=== PATIENT | female | born 1995 | race Caucasian/White ===

== ENCOUNTER 2017-10-18 23:38 | Emergency (ER) | payer BC ==
[2017-10-19] MEDS ORDERED: Ondansetron 4 MG/2 ML SDV IVPUSH ONE (00:01)
[2017-10-19] MEDS ORDERED: Sodium Chloride 0.9% 10 ML Syringe FLUSH PRN (00:01)
[2017-10-19] MEDS ORDERED: Pantoprazole 40 MG Vial IVPUSH ONE (00:02)
--- NOTE | 2017-10-19 00:08 | EDM.PDOC ---
ED HPI GENERAL MEDICAL PROBLEM - General Chief Complaint: Gastrointestinal Problem Stated Complaint: TONSIL PAIN,VOMIT Time Seen by Provider: 10/19/17 00:03 Source of Information: Reports: Patient, Family History Limitations: Reports: No Limitations - History of Present Illness INITIAL COMMENTS - FREE TEXT/NARRATIVE: [place] comes into [facility] ED with episodic nausea and vomiting since tonsilectomy about a week ago. Efforts to consume solids and liquids have been problematic with post operative throat pain that has partially improved. Today, she feels weaker, unable to retain nourishment, with limited epigastric pain. She has voided in small amounts. throat Pain Score (Numeric/FACES): 7 - Related Data Allergies Allergy/AdvReac Type Severity Reaction Status Date / Time No Known Allergies Allergy Verified 10/19/17 00:01 Home Meds: Home Meds Acetaminophen [Tylenol 160 MG/5 ML Liq] 10 ml Q4H PRN 10/19/17 [History] Ibuprofen 20 ml Q4H PRN 10/19/17 [History] oxyCODONE HCl [Oxycodone HCl] 5 - 10 ml Q4H PRN 10/19/17 [History] Past Medical History - Past Surgical History HEENT Surgical History: Reports: Tonsillectomy ED ROS GENERAL - Review of Systems Review Of Systems: See Below Constitutional: Reports: Malaise, Weakness HEENT: Reports: Throat Pain Respiratory: Reports: No Symptoms Cardiovascular: Reports: No Symptoms Endocrine: Reports: No Symptoms GI/Abdominal: Reports: Abdominal Pain, Nausea, Vomiting : Reports: No Symptoms Musculoskeletal: Reports: No Symptoms Skin: Reports: No Symptoms Neurological: Reports: Dizziness, Weakness Psychiatric: Reports: No Symptoms Hematologic/Lymphatic: Reports: No Symptoms Immunologic: Reports: No Symptoms ED EXAM, GI/ABD - Physical Exam Exam: See Below Exam Limited By: No Limitations General Appearance: Alert, WD/WN, Mild Distress, Thin Eyes: Bilateral: Normal Appearance, EOMI Ears: Normal External Exam Nose: Normal Inspection Throat/Mouth: Other (xerostomia, post op tonsilar beds with some fibrinous exudate) Neck: Normal Inspection, Supple, Full Range of Motion Respiratory/Chest: Lungs Clear, Normal Breath Sounds, Chest Non-Tender Cardiovascular: Regular Rate, Rhythm, No Murmur GI/Abdominal Exam: Normal Bowel Sounds, Soft, No Organomegaly, No Distention, No Mass, Tender (mild tenderness RUQ and epigastric) Back Exam: Normal Inspection Extremities: Normal Inspection Neurological: Alert, Oriented, CN II-XII Intact, Normal Gait, No Motor/Sensory Deficits Psychiatric: Normal Affect, Normal Mood Skin Exam: Warm, Dry, Intact Lymphatic: No Adenopathy Course - Vital Signs Text/Narrative:: Following assessment at the [facility] ED, an IV was inserted into the LUE, and NS 1L administered with Protonix 40 mg and Zofran 4 mg IV. She was sxs improved at time of discharge. Last Recorded V/S: Last Vital Signs Temp 37.7 C 10/18/17 23:53 Pulse 120 H 10/18/17 23:53 Resp 20 10/18/17 23:53 BP 115/70 10/18/17 23:53 Pulse Ox 100 10/18/17 23:53 - Orders/Labs/Meds Orders: Active Orders 24 hr Category Date Time Status UA W/MICROSCOPIC [URIN] Stat Lab 10/19/17 00:01 Ordered Sodium Chloride 0.9% [Normal Saline] 1,000 ml Med 10/19/17 00:15 Active IV ASDIRECTED Sodium Chloride 0.9% [Saline Flush] Med 10/19/17 00:01 Active 10 ml FLUSH ASDIRECTED PRN Peripheral IV Insertion Adult [OM.PC] Routine Oth 10/19/17 00:01 Ordered Medication Orders Sodium Chloride (Normal Saline) 1,000 mls @ 999 mls/hr IV ASDIRECTED MANUEL Last Admin: 10/19/17 00:34 Dose: 999 mls/hr Sodium Chloride (Saline Flush) 10 ml FLUSH ASDIRECTED PRN PRN Reason: Keep Vein Open Meds: Medications Generic Name Dose Route Start Last Admin Trade Name Freq PRN Reason Stop Dose Admin Sodium Chloride 1,000 mls @ 999 mls/hr 10/19/17 00:15 10/19/17 00:34 Normal Saline IV 999 mls/hr ASDIRECTED MANUEL Administration Sodium Chloride 10 ml 10/19/17 00:01 Saline Flush FLUSH ASDIRECTED PRN Keep Vein Open Discontinued Medications Generic Name Dose Route Start Last Admin Trade Name Freq PRN Reason Stop Dose Admin Ondansetron HCl 4 mg 10/19/17 00:01 10/19/17 00:34 Zofran IVPUSH 10/19/17 00:02 4 mg ONETIME ONE Administration Pantoprazole Sodium 40 mg 10/19/17 00:02 10/19/17 00:36 Protonix Iv IVPUSH 10/19/17 00:03 40 mg ONETIME ONE Administration Departure - Departure Time of Disposition: 01:39 Disposition: Home, Self-Care 01 Condition: Good Clinical Impression: Gastritis Qualifiers: Gastritis type: superficial Chronicity: unspecified Gastritis bleeding: without bleeding Qualified Code(s): K29.30 - Chronic superficial gastritis without bleeding - Discharge Information Referrals: Rene Lee MD [Primary Care Provider] - Forms: ED Department Discharge - Problem List & Annotations (1) Gastritis SNOMED Code(s): 7735232 Code(s): K29.70 - GASTRITIS, UNSPECIFIED, WITHOUT BLEEDING Status: Acute Current Visit: Yes Annotation/Comment:: I suggested sxs cares, hydration, and continue post op meds for tonsilectomy. Qualifiers: Gastritis type: superficial Chronicity: unspecified Gastritis bleeding: without bleeding Qualified Code(s): K29.30 - Chronic superficial gastritis without bleeding - Problem List Review Problem List Initiated/Reviewed/Updated: Yes - My Orders Last 24 Hours: My Active Orders 10/19/17 00:01 UA W/MICROSCOPIC [URIN] Stat Sodium Chloride 0.9% [Saline Flush] 10 ml FLUSH ASDIRECTED PRN Peripheral IV Insertion Adult [OM.PC] Routine 10/19/17 00:15 Sodium Chloride 0.9% [Normal Saline] 1,000 ml IV ASDIRECTED - Assessment/Plan Last 24 Hours: My Active Orders 10/19/17 00:01 UA W/MICROSCOPIC [URIN] Stat Sodium Chloride 0.9% [Saline Flush] 10 ml FLUSH ASDIRECTED PRN Peripheral IV Insertion Adult [OM.PC] Routine 10/19/17 00:15 Sodium Chloride 0.9% [Normal Saline] 1,000 ml IV ASDIRECTED Plan: Follow up with PCP if needed.
[2017-10-19] MEDS ORDERED: Sodium Chloride 0.9% 1,000 ML IV SCH (00:15)
[2017-10-19] MEDS ORDERED: Sulfamethoxazole/Trimethoprim 800-160 MG Tab PO ONE (02:03)
== END 2017-10-19 02:14 | disposition home or self-care (01) ==
LOC: FB.ED 23:38
DX: K29.30 Chronic superficial gastritis without bleeding (principal)
CPT/HCPCS: 81001; 87086; 87088; 87186; 96361; 96374; 96375; 99283; A9270; C9113; J2405; J7040

== ENCOUNTER 2020-10-29 12:09 | Emergency (ER) | payer OTHER, BC ==
--- NOTE | 2020-10-29 13:07 | EDM.PDOC ---
ED HPI GENERAL MEDICAL PROBLEM - General Stated Complaint: FALL Time Seen by Provider: 10/29/20 12:20 Source of Information: Reports: Patient History Limitations: Reports: No Limitations - History of Present Illness INITIAL COMMENTS - FREE TEXT/NARRATIVE: Patient is a 25 YO WF who presented to the ED because of headache, and syncopal episode. She has a history of migraine and head 2/10 pain since yesterday. This morning she had a brief syncopal episode episode and fell face down. She sustained an abrasion on the left cheek with mild pain on opening her mouth. Headache Pain Score (Numeric/FACES): 3 - Related Data Allergies Allergy/AdvReac Type Severity Reaction Status Date / Time No Known Allergies Allergy Verified 10/29/20 12:46 Home Meds: Home Meds Acetaminophen [Tylenol 160 MG/5 ML Liq] 10 ml Q4H PRN 10/19/17 [History] Ibuprofen 20 ml Q4H PRN 10/19/17 [History] oxyCODONE HCl [Oxycodone HCl] 5 - 10 ml Q4H PRN 10/19/17 [History] Past Medical History Musculoskeletal History: Reports: Fracture Other Musculoskeletal History: hx fx arm, Neurological History: Reports: Migraines - Past Surgical History HEENT Surgical History: Reports: Tonsillectomy Social & Family History - Family History Family Medical History: No Pertinent Family History - Caffeine Use Caffeine Use: Reports: None ED ROS GENERAL - Review of Systems Review Of Systems: See Below Constitutional: Reports: No Symptoms HEENT: Reports: No Symptoms Respiratory: Reports: No Symptoms Cardiovascular: Reports: No Symptoms Endocrine: Reports: No Symptoms GI/Abdominal: Reports: No Symptoms : Reports: No Symptoms Musculoskeletal: Reports: No Symptoms Skin: Reports: No Symptoms Neurological: Reports: Headache, Syncope Psychiatric: Reports: No Symptoms Hematologic/Lymphatic: Reports: No Symptoms ED EXAM, GENERAL - Physical Exam Exam: See Below Exam Limited By: No Limitations General Appearance: Alert, No Apparent Distress Ears: Normal External Exam, Normal Canal, Hearing Grossly Normal Nose: Normal Inspection, Normal Mucosa, No Blood Throat/Mouth: Normal Inspection, Normal Lips, Normal Teeth, Normal Gums Head: Atraumatic (cheek abrasio), Other Respiratory/Chest: No Respiratory Distress, Lungs Clear, Normal Breath Sounds, No Accessory Muscle Use, Chest Non-Tender Cardiovascular: Normal Peripheral Pulses, Regular Rate, Rhythm, No Edema, No Gallop, No JVD, No Murmur GI/Abdominal: Normal Bowel Sounds, Soft, Non-Tender, No Organomegaly, No Distention, No Abnormal Bruit Back Exam: Normal Inspection, Full Range of Motion Extremities: Normal Inspection, Normal Range of Motion, Non-Tender Neurological: Alert, Oriented, CN II-XII Intact, Normal Cognition, Normal Gait, Normal Reflexes, No Motor/Sensory Deficits Psychiatric: Normal Affect, Normal Mood Skin Exam: Warm, Other (abrasion left cheek) Course - Vital Signs Text/Narrative:: Refused labs and EKG CT machine in our facility is out of order and so we can't order for head and facial CT. She decide to go to [facility] to be evaluated. Last Recorded V/S: Last Vital Signs Temp 36.7 C 10/29/20 13:30 Pulse 80 10/29/20 13:30 Resp 17 10/29/20 13:30 BP 110/67 10/29/20 13:30 Pulse Ox 100 10/29/20 13:30 - Orders/Labs/Meds Orders: Active Orders 24 hr Category Date Time Status EKG 12 Lead [EK] Routine Ther 10/29/20 12:40 Ordered Departure - Departure Time of Disposition: 13:05 Disposition: DC/Tfer to Acute Hospital 02 Condition: Good Clinical Impression: Facial injury, Headache - Discharge Information Instructions: Migraine Headache, [id number], Syncope, [id number], Head Injury, Adult, [id number] Referrals: PCP,None [Primary Care Provider] - Forms: ED Department Discharge Additional Instructions: Please proceed to [facility] Sepsis Event Note (ED) - Evaluation Sepsis Screening Result: No Definite Risk - My Orders Last 24 Hours: My Active Orders 10/29/20 12:40 EKG 12 Lead [EK] Routine - Assessment/Plan Last 24 Hours: My Active Orders 10/29/20 12:40 EKG 12 Lead [EK] Routine
== END 2020-10-29 13:40 ==
LOC: FB.ED 12:09
DX: S00.81XA Abrasion of other part of head, initial encounter (principal); R51.9 Headache, unspecified; W19.XXXA Unspecified fall, initial encounter; Y99.0 Civilian activity done for income or pay
CPT/HCPCS: 99285-25